=== PATIENT | male | born 1995 | race Caucasian/White ===

== ENCOUNTER 2018-09-27 13:30 | Emergency (ER) | payer SELFPAY ==
--- NOTE | 2018-09-27 14:28 | RAD REPORT ---
EXAM DESCRIPTION: RAD - Hand Right 3 View - 09/27/2018 2:16 pm CLINICAL HISTORY: Smash injury;Swelling;Pain COMPARISON: No comparisons FINDINGS: Mildly displaced fracture of the hamate is suspected. Moderate adjacent soft tissue swelli ng. No dislocation evident.
--- NOTE | 2018-09-27 15:42 | EDPHYS ---
Physician Documentation [facility] Name: Robert Metzger Age: 23 yrs Sex: Male : 1995 Arrival Date: 09/27/2018 Time: 13:34 Bed 10 Private MD: ED Physician Geo Leyva HPI: 09/27 16:04 This 23 yrs old Male presents to ER via Ambulatory with complaints of Hand gs Injury. 16:04 The patient or guardian reports injury. The complaints affect the right hand diffusely. gs Context: The problem was sustained at home, resulted from a crush injury, pinched between 2 pipes. Onset: The symptoms/episode began/occurred 3 day(s) ago. Modifying factors: the symptoms are aggravated by movement. Associated signs and symptoms: Pertinent negatives: numbness distally, tingling distally. Severity of symptoms: At their worst the symptoms were moderate, in the emergency department the symptoms are unchanged. The patient has not experienced similar symptoms in the past. Historical: - Allergies: 13:36 No Known Allergies; hj - Home Meds: 13:36 None [Active]; hj - PMHx: 13:36 None; hj - PSHx: 13:36 None; hj - Immunization history:: Adult Immunizations up to date. - Social history:: Smoking status: Patient uses tobacco products, Patient uses alcohol. - Ebola Screening: : Patient negative for fever greater than or equal to 101.5 degrees Fahrenheit, and additional compatible Ebola Virus Disease symptoms Patient denies exposure to infectious person Patient denies travel to an Ebola-affected area in the 21 days before illness onset. ROS: 16:04 All other systems are negative. gs Exam: 16:04 ENT: Nares patent. No nasal discharge, no septal abnormalities noted. Tympanic gs membranes are normal and external auditory canals are clear. Oropharynx with no redness, swelling, or masses, exudates, or evidence of obstruction, uvula midline. Mucous membranes moist. Cardiovascular: Regular rate and rhythm with a normal S1 and S2. No gallops, murmurs, or rubs. Normal PMI, no JVD. No pulse deficits. Respiratory: Lungs have equal breath sounds bilaterally, clear to auscultation and percussion. No rales, rhonchi or wheezes noted. No increased work of breathing, no retractions or nasal flaring. Abdomen/GI: Soft, non-tender, with normal bowel sounds. No distension or tympany. No guarding or rebound. No evidence of tenderness throughout. Skin: Warm, dry with normal turgor. Normal color with no rashes, no lesions, and no evidence of cellulitis. Neuro: Awake and alert, GCS 15, oriented to person, place, time, and situation. Cranial nerves II-XII grossly intact. Motor strength 5/5 in all extremities. Sensory grossly intact. Cerebellar exam normal. Normal gait. 16:04 Constitutional: The patient appears alert, awake. 16:04 Musculoskeletal/extremity: Extremities: noted in the right hand: ecchymosis, pain, swelling, tenderness, ROM: limited active range of motion due to pain, limited passive range of motion due to pain, Pulses: are normal with no appreciated deficits, Sensation intact. Compartment Syndrome exam of affected extremity: is normal. Vital Signs: 13:37 BP 126 / 82; Pulse 80; Resp 18; Temp 98.1(O); Pulse Ox 100% on R/A; Weight 60.33 kg; hj Height 5 ft. 9 in. (175.26 cm); Pain 3/10; 13:37 Body Mass Index 19.64 (60.33 kg, 175.26 cm) Procedures: 16:04 Splinting: Splint applied to right hand and right wrist using Orthoglass splint, gs applied by tech. Examined by me, post splint application: neurovascular intact, 2+ distal pulses palpable, brisk capillary refill noted, Patient tolerated well. MDM: 15:13 Patient medically screened. 16:04 Differential diagnosis: closed fracture, contusion, abrasion. Data reviewed: vital gs signs, nurses notes. Counseling: I had a detailed discussion with the patient and/or guardian regarding: the historical points, exam findings, and any diagnostic results supporting the discharge/admit diagnosis, radiology results, the need for outpatient follow up. Response to treatment: the patient's symptoms have markedly improved after treatment, and as a result, I will discharge patient. 09/27 13:39 Order name: Hand Right 3 View XRAY; Complete Time: 15:12 09/27 15:13 Order name: Splint - Volar Wrist Splint; Complete Time: 15:36 gs Administered Medications: No medications were administered Disposition: 09/27/18 15:41 Discharged to Home. Impression: Displaced fracture of body of hamate [unciform] bone, right wrist. - Condition is Stable. - Discharge Instructions: Wrist Fracture Treated With Immobilization, [id number]. - Prescriptions for Tylenol- Codeine #4 300-60 mg Oral Tablet - take 1 tablet by ORAL route every 6 hours As needed; 12 tablet. - Work release form, Medication Reconciliation Form, Thank You Letter, Antibiotic Education, Prescription Opioid Use form. - Follow up: Demar Marie MD; When: 2 - 3 days; Reason: Re-evaluation by your physician. Follow up: Humberto Casas MD; When: 2 - 3 days; Reason: Re-evaluation by your physician. Signatures: Dispatcher [employer] FILIPEWV Helena Melgoza ms, Henry, RN RN Geo Bravo MD MD gs Corrections: (The following items were deleted from the chart) 15:53 15:41 09/27/2018 15:41 Discharged to Home. Impression: Displaced fracture of body of ms naresh [unciform] bone, right wrist. Condition is Stable. Forms are Medication Reconciliation Form, Thank You Letter, Antibiotic Education, Prescription Opioid Use. Follow up: Demar Marie; When: 2 - 3 days; Reason: Re-evaluation by your physician. Follow up: Humberto Casas; When: 2 - 3 days; Reason: Re-evaluation by your physician. gs
--- NOTE | 2018-09-27 15:42 | ER ---
Nurse's Notes [facility] Name: Robert Metzger Age: 23 yrs Sex: Male : 1995 Arrival Date: 09/27/2018 Time: 13:34 Bed 10 Private MD: Diagnosis: Displaced fracture of body of hamate [unciform] bone, right wrist Presentation: 09/27 13:35 Presenting complaint: Patient states: i hurt my R hand in between 2 pieces of metal, it hj happened , reports pain and swelling;. Transition of care: patient was not received from another setting of care. Onset of symptoms was September 27, 2018. Risk Assessment: Do you want to hurt yourself or someone else? Patient reports no desire to harm self or others. Initial Sepsis Screen: Does the patient meet any 2 criteria? No. Patient's initial sepsis screen is negative. Does the patient have a suspected source of infection? No. Patient's initial sepsis screen is negative. Care prior to arrival: None. 13:35 Method Of Arrival: Ambulatory 13:35 Acuity: MALLIKA 4 hj Triage Assessment: 13:36 General: Appears in no apparent distress. uncomfortable, Behavior is calm, cooperative, hj appropriate for age. Pain: Complains of pain in right hand. Musculoskeletal: Reports pain in right hand. Injury Description: Crush injury. Historical: - Allergies: 13:36 No Known Allergies; hj - Home Meds: 13:36 None [Active]; hj - PMHx: 13:36 None; hj - PSHx: 13:36 None; hj - Immunization history:: Adult Immunizations up to date. - Social history:: Smoking status: Patient uses tobacco products, Patient uses alcohol. - Ebola Screening: : Patient negative for fever greater than or equal to 101.5 degrees Fahrenheit, and additional compatible Ebola Virus Disease symptoms Patient denies exposure to infectious person Patient denies travel to an Ebola-affected area in the 21 days before illness onset. Screenin:37 Abuse screen: Denies threats or abuse. Denies injuries from another. Nutritional hj screening: No deficits noted. Tuberculosis screening: No symptoms or risk factors identified. Fall Risk None identified. Assessment: 14:58 General: Appears in no apparent distress. Behavior is calm, cooperative. Pain: iw Complains of pain in right hand. Neuro: Level of Consciousness is awake, alert, obeys commands, Oriented to person, place, time. Cardiovascular: Patient's skin is warm and dry. Respiratory: Airway is patent Respiratory effort is even, unlabored. GI: No signs and/or symptoms were reported involving the gastrointestinal system. Derm: Skin is intact, Bruising that is dark purple, on right hand. Musculoskeletal: Range of motion: Swelling present in right hand. Vital Signs: 13:37 BP 126 / 82; Pulse 80; Resp 18; Temp 98.1(O); Pulse Ox 100% on R/A; Weight 60.33 kg; hj Height 5 ft. 9 in. (175.26 cm); Pain 3/10; 13:37 Body Mass Index 19.64 (60.33 kg, 175.26 cm) ED Course: 13:34 Patient arrived in ED. mr 13:36 Triage completed. hj 13:37 Arm band placed on left wrist. hj 13:37 Patient has correct armband on for positive identification. Bed in low position. Call hj light in reach. Side rails up X 1. Adult w/ patient. 13:54 Freida Garcia, ELEAZAR is Primary Nurse. iw 14:00 Geo Leyva MD is Attending Physician. gs 14:18 Hand Right 3 View XRAY In Process Unspecified. EDMS 15:36 Orthoglass splint: Volar splint applied on right arm. ms 15:38 Demar Marie MD is Referral Physician. gs 15:40 Humberto Casas MD is Referral Physician. gs 15:51 No provider procedures requiring assistance completed. Patient did not have IV access iw during this emergency room visit. Administered Medications: No medications were administered Outcome: 15:41 Discharge ordered by . gs 15:52 Discharged to home ambulatory, with family. iw 15:52 Condition: good 15:52 Discharge instructions given to patient, family, Instructed on discharge instructions, follow up and referral plans. medication usage, safety practices, Demonstrated understanding of instructions, follow-up care, medications, splint care, Prescriptions given X 1. 15:53 Patient left the ED. ms Signatures: Dispatcher [employer] EDWY Mehnaz Champagne mr Freida Garcia RN RN Helena Melgoza ms Jamal Mcclure RN RN Geo Leyva MD MD Corrections: (The following items were deleted from the chart) 13:39 13:37 Pulse 80bpm; Resp 18bpm; Pulse Ox 100% RA; Temp 98.1F Oral; 60.33 kg; Height 5 hj ft. 9 in.; BMI: 19.6; Pain 3/10; hj
== END 2018-09-27 15:53 | disposition home or self-care (01) ==
LOC: ER 13:30
PROC: 2W3CX1Z Immobilization of Right Lower Arm using Splint (ICD-10-PCS; principal; 2018-09-27)
DX: S62.141A Displaced fracture of body of hamate [unciform] bone, right wrist, initial encounter for closed fracture (principal); W23.0XXA Caught, crushed, jammed, or pinched between moving objects, initial encounter; Y93.89 Activity, other specified; Y92.89 Other specified places as the place of occurrence of the external cause; Y92.009 Unspecified place in unspecified non-institutional (private) residence as the place of occurrence of the external cause; Z72.0 Tobacco use
CPT/HCPCS: 99283